=== PATIENT | male | born 1995 | race Two or more races ===

== ENCOUNTER 2022-01-07 13:45 | Emergency (ER) | payer OTHER ==
[~2022-01-07] VITALS: Ht 172.7 cm; Wt 129.3 kg
== END 2022-01-07 20:09 | disposition home or self-care (01) ==
LOC: ER 13:45
DX: J11.1 Influenza due to unidentified influenza virus with other respiratory manifestations (principal); Z20.822 Contact with and (suspected) exposure to COVID-19

== ENCOUNTER → 2022-04-04 | Outpatient (CLI) | payer OTHER | END | disposition home or self-care (01) | LOC: LAB 05:51 | PROVIDERS: ATTEND Obstetrics & Gynecology | DX: Z20.828 Contact with and (suspected) exposure to other viral communicable diseases (principal); Z20.818 Contact with and (suspected) exposure to other bacterial communicable diseases ==